=== PATIENT | male | born 1975 | race Caucasian/White ===

== ENCOUNTER 2018-06-12 06:07 | Day surgery (SDC) | payer BC ==
[~2018-06-12] VITALS: Ht 172.7 cm; Wt 85.9 kg
[~2018-06-12 06:07] MED LIST: NO HOME MEDICATIONS; VIAGRA 25MG TAB25 MG PO
[2018-06-12] MEDS ORDERED: LEXAPRO20 MG PO (06:29)
[2018-06-12] MEDS ORDERED: KLONOPIN 0.5MG0.5 MG PO (06:30)
[2018-06-12 06:32] VITALS: BP 116/82; PULSE 90; TEMP 98
[2018-06-12 08:00] VITALS: BP 102/70; PULSE 71; TEMP 97.2
[2018-06-12 08:15] VITALS: BP 101/71; PULSE 62
[2018-06-12 08:30] VITALS: BP 107/72; PULSE 76
== END 2018-06-12 09:00 | disposition home or self-care (01) ==
LOC: SDCO 06:07
DX: Z12.11 Encounter for screening for malignant neoplasm of colon (principal); K63.3 Ulcer of intestine; D12.6 Benign neoplasm of colon, unspecified; K31.7 Polyp of stomach and duodenum; K56.699 Other intestinal obstruction unspecified as to partial versus complete obstruction; K91.850 Pouchitis; F41.9 Anxiety disorder, unspecified; F32.9 Major depressive disorder, single episode, unspecified; Z90.49 Acquired absence of other specified parts of digestive tract; Z86.010 Personal history of colon polyps; Z88.6 Allergy status to analgesic agent
CPT/HCPCS: J2250; J2704; J3010; J7030

== ENCOUNTER 2019-01-07 22:26 | Emergency (ER) | payer OTHER, BC ==
[~2019-01-07] VITALS: Ht 172.7 cm; Wt 84.1 kg
[~2019-01-07 22:26] MED LIST changes: +KLONOPIN 0.5MG0.5 MG PO; +LEXAPRO20 MG PO
[2019-01-07 22:33] VITALS: BP 117/70; TEMP 96.6
[2019-01-07] MEDS ORDERED: LEXAPRO 10MG10 MG PO (22:43)
[2019-01-07 23:20] VITALS: PULSE 77
== END 2019-01-07 23:20 | disposition home or self-care (01) ==
LOC: COL.ER 22:26
DX: S61.412A Laceration without foreign body of left hand, initial encounter (principal); Z23 Encounter for immunization; W26.0XXA Contact with knife, initial encounter; Y92.009 Unspecified place in unspecified non-institutional (private) residence as the place of occurrence of the external cause